=== PATIENT | male | born 1965 | race Caucasian/White ===

== ENCOUNTER → 2017-05-06 | Outpatient (CLI) | payer BC ==
[~2017-05-06] MED LIST: GABA100C PO; HYDR25TA6 PO; METH5TAB2 PO; NEBI10TA3 PO; PREG100C PO; REGADENOSON 0.4 MG/5 ML SYRINGE ONE
== END | disposition home or self-care (01) ==
LOC: CFH 08:23
PROVIDERS: ATTEND Internal Medicine Cardiovascular Disease
DX: I51.7 Cardiomegaly (principal); I10 Essential (primary) hypertension; I49.3 Ventricular premature depolarization
CPT/HCPCS: 78452; 93017; 93306; A9502; J2785

== ENCOUNTER → 2021-01-16 | Outpatient (CLI) | payer BC | END | disposition home or self-care (01) | LOC: CFH 12:24 | PROVIDERS: ATTEND Internal Medicine Cardiovascular Disease | DX: I10 Essential (primary) hypertension (principal); R07.9 Chest pain, unspecified; I44.7 Left bundle-branch block, unspecified | CPT/HCPCS: 78452; 93017; A9502; C8929; J2785; Q9957 ==